=== PATIENT | female | born 1935 | race Caucasian/White ===

== ENCOUNTER 2017-05-20 10:50 | Inpatient (IN) | payer OTHER ==
[~2017-05-20] VITALS: Ht 160 cm; Wt 53.6 kg
[2017-05-20 12:00] LABS: CHLORIDE 100 mEq/L (99-109); POTASSIUM 4.9 mEq/L (3.7-5.4); SODIUM 138 mEq/L (136-147)
[2017-05-20 12:02] LABS: GLUCOSE 98 mg/dL (70-99)
[2017-05-20 12:03] LABS: ANION GAP 12 MEQ/L (2-14)
[2017-05-20 12:05] LABS: GFR ESTIMATE (CALCULATED) > 59 mL/min/
[2017-05-20 12:06] LABS: UREA NITROGEN (BUN) 13 mg/dL (9-23)
[2017-05-20 12:11] LABS: HEMATOCRIT 39.8 % (36.0-46.0); MCH 33.2 PG (29.0-34.0); MCHC 33.2 G/DL (30.0-36.0); MCV 100.3 FL (83-99); MEAN PLAT.VOLUME 11.4 uM^3 (9.5-12.4); PLATELET COUNT 195 K/uL (156-360); RED BLOOD COUNT 3.97 M/uL (3.80-5.20)
[2017-05-20 13:14] LABS: INTER. NORMALIZED RATIO 2.3; PROTHROMBIN TIME 25.8 SEC (10.2-12.9)
[2017-05-20] MEDS ORDERED: SIMVASTATIN20 MG PO (16:07)
[2017-05-20] MEDS ORDERED: COUMADIN2 MG PO ×2 (16:07)
[2017-05-20] MEDS ORDERED: SYNTHROID75 MCG PO (16:08)
[2017-05-20] MEDS ORDERED: MAGNESIUM400 M1 PO (16:08)
[2017-05-20] MEDS ORDERED: ZINC50 M1 PO (16:08)
[2017-05-20] MEDS ORDERED: ZESTRIL20 MG PO (16:08)
[2017-05-20] MEDS ORDERED: BENADRYL ALLERG25 MG PO (16:08)
[2017-05-20] MEDS ORDERED: TYLENOL REGULA325 MG PO ×2 (16:08)
[2017-05-20 17:41] VITALS: BP 166/73
[2017-05-20 18:09] LABS: INTER. NORMALIZED RATIO 2.3; PROTHROMBIN TIME 26.9 SEC (10.2-12.9)
[2017-05-20 18:10] LABS: TROP-I INTERPRETATION NEGATIVE; TROPONIN-I 0.01 ng/mL (0.0-0.30)
[2017-05-20 18:17] LABS: Estimated Average Glucose 120 mg/dL (70-123); HDL CHOLESTEROL 78 MG/DL (Desirable>=50); HEMOGLOBIN A1c (GLYCOHEMOGLOB) 5.8 % HGB (Below 5.7); LDL CHOLESTEROL 63 mg/dL (Desirable<100); NON-HDL CHOLESTEROL 73 mg/dL (Desirable<160); TOTAL CHOLESTEROL 151 mg/dL (Desirable<200); TRIGLYCERIDES 52 MG/DL (Normal: <150)
[2017-05-20 22:39] LABS: TROP-I INTERPRETATION NEGATIVE; TROPONIN-I < 0.01 ng/mL (0.0-0.30)
[2017-05-20 23:23] VITALS: BP 144/64
[2017-05-21 03:11] VITALS: BP 146/79
[2017-05-21 05:12] LABS: INTER. NORMALIZED RATIO 2.5; PROTHROMBIN TIME 28.3 SEC (10.2-12.9)
[2017-05-21 05:26] LABS: TROP-I INTERPRETATION NEGATIVE; TROPONIN-I 0.01 ng/mL (0.0-0.30)
[2017-05-21 07:58] VITALS: BP 156/78
[2017-05-21 12:26] VITALS: BP 139/66
[2017-05-21 13:00] VITALS: BP 122/69
== END 2017-05-21 13:58 | disposition home or self-care (01) | DRG 93 ==
LOC: EME 10:50 → EDOF 14:13 → 5SOUTH 14:13 → ENRESERV 14:36 → EDOF 14:36 → ENRESERV 15:09 → 5SOUTH 17:18 → ENPENDDIS 05-21 → 5SOUTH 05-21 13:58
PROVIDERS: Emergency Medicine; Internal Medicine
DX: R27.0 Ataxia, unspecified (principal); I48.91 Unspecified atrial fibrillation; I73.9 Peripheral vascular disease, unspecified; I10 Essential (primary) hypertension; E89.0 Postprocedural hypothyroidism; Z85.3 Personal history of malignant neoplasm of breast; Z79.01 Long term (current) use of anticoagulants; Z85.850 Personal history of malignant neoplasm of thyroid; Z90.11 Acquired absence of right breast and nipple; Z82.49 Family history of ischemic heart disease and other diseases of the circulatory system; Z82.3 Family history of stroke; Z80.3 Family history of malignant neoplasm of breast; Z79.899 Other long term (current) drug therapy
CPT/HCPCS: 70450; 70551; 71020; 80048; 80061; 83036; 84484; 85027; 85610; 85730; 93005; 93880; 99281; 99285